=== PATIENT | female | born 1975 | race Two or more races ===

== ENCOUNTER 2025-01-02 13:54 | Outpatient (AMB) | payer MEDICAID, SELFPAY ==
[2025-01-02 14:22] VITALS: BP 135/92; PULSE 88; RESP 18; TEMP 36.8; O2SAT 99; BMI 36.3
--- NOTE | 2025-01-02 14:22 | PD.ORTHCLVIS ---
Vital signs 01/02/25 14:22 Height 1.65 m Height Method Stated Weight 98.997 kg Weight Measurement Method Standing Scale BMI 36.3 BP 135/92 H Blood Pressure Source Automatic Cuff Blood Pressure Location Left Upper Arm Position Sitting Respiration 18 Pulse 88 Pulse Source Monitor Temp 98.2 F Temp Source Temporal Artery Scan Pulse Oximetry (%) 99 Oxygen Delivery Method Room Air Med/Allergies Allergies & Medications Allergies Sulfa (Sulfonamide Antibiotics) Allergy (Intermediate, Verified 01/02/25 14:23) SOB codeine Adverse Reaction (Intermediate, Verified 01/02/25 14:23) SOB lorazepam Adverse Reaction (Intermediate, Verified 01/02/25 14:23) FLIPPED OUT hydrocodone Adverse Reaction (Mild, Verified 01/02/25 14:23) Rash Medication Reconciliation ondansetron 4 mg disintegrating tablet 4 mg PO Q8H #14 tabs 08/28/24 [Rx Confirmed 01/02/25] Exam Exam Breathing is nonlabored. Patient has a normal mood and affect. Bilateral extremities were evaluated and demonstrates sensation intact to light touch. Palpable pedal pulses are present. No significant edema is present. Bilateral hips were examined. The patient has no pain with log roll of the hips. Internal rotation to 30 degrees and external rotation to 30 degrees is painless. Negative FADIR. Left knee was examined today. The left knee is in reasonable alignment. Range of motion from 0-120 degrees. Knee is stable to varus and valgus as well as AP translation with <5mm. Patient has a negative McMurrays. There is no pain with patellofemoral compression and no crepitus noted. The knee is nontender to palpation. The right knee was also examined. The right knee is in varus alignment. Range of motion from 0-115 degrees. Knee is stable to varus and valgus as well as AP translation with <5mm. Patient has a negative McMurrays. There is no pain with patellofemoral compression and no crepitus noted. The knee is tender to palpation medially. Assessment and Plan Problem List (1) Bilateral knee pain: Status: Acute Plan: Patient is a 49-year-old female with bilateral knee pain and right knee arthritis. She is likely [id number] but we will need to get weightbearing x-rays to confirm this. I will see her back in approximately 2 weeks for a phone visit to discuss her x-ray results. She is exhausted conservative treatment at this point we will likely discuss surgery (2) Arthritis of right knee: Status: Acute Office Procedures GNS Level of Care Nursing/Assessment Patient Status: Initial/New Patient Nursing Assessment/Reassesment: Medication Reconciliation, Update PMH in EMR and Vital Signs Coordination of Care: Complex Care and Chronic Disease 1-5, Education Complex Pt/Fam, Consent,records obtained, informed consent, 1 Ins Authorization, Lab and Imaging orders, Results/Orders obtained and Staff clarify orders New Patient Charge New Patient Point Assignment: 1124 New Patient Point Charge: FIRE SAFETY DIRECTOR Level 4 ([id number]) MA Intake Visit Data Collection New Patient or Established: New Patient (never been to [facility]) Reason for Visit:: RIGHT KNEE PAIN Seen by Clinical Staff ONLY (RN/MA): No Tube Machine Operator Required: No PCP or OBGYN visit in last 3 months: Yes Hx Now: No Do You Feel Safe at Home: Yes Authorities Contacted: N/A Questionairres Past Medical History Past Medical History Have you ever been diagnosed with any of the following: Cardiology Problems Congestive Heart Failure: No Respiratory Problems Chronic Obstructive Pulmonary Disease (COPD): No Genital/Urinary Problems Renal Disease: No Endocrine Problems Diabetes Mellitus Type 1: No Diabetes Mellitus Type 2: No Subjective Visit Visit for: new patient and knee Immunization / Flu Flu Vaccine in the Last 12 Months: No Flu Vaccine Exclusion Criteria: Refused by Patient History of Present Illness Chief complaint: Bilateral knee pain Rosemary is a pleasant 49-year-old female with bilateral knee pain worse on the right. This is been ongoing for several years. She has had 3 injections. She is having difficulty taking anti-inflammatories due to some gastritis and peptic ulcer disease. The pain is affecting her quality life. She has tried Voltaren cream. The patient has also tried a brace. He is getting a kidney biopsy at [facility] send is being worked up for that As well as an endoscopy Personal History Occupation: NOT EMPLOYED Hobbies: DAILY ACTIVITES Pain Pain level (0-10): 10 Pain duration: COMES AND GOES Pain location: anterior and posterior Pain quality: sharp, dull and aching Pain timing: increases with activity Associated signs & symptoms: numbness Ambulatory data Ambulatory device: none Treatments Number of previous injections: 3 Improvement with previous injections: No Improvement with PT: No Improvement with NSAIDS: no Review of Systems Review of Systems: All systems negative unless otherwise noted in HPI.
== END 2025-01-02 15:10 | disposition home or self-care (01) ==
LOC: HODSRG 13:54
PROVIDERS: PCP Nurse Practitioner; Referring Provider Nurse Practitioner; Supervising Provider Orthopaedic Surgery Adult Reconstructive Orthopaedic Surgery; Visit Provider Orthopaedic Surgery Adult Reconstructive Orthopaedic Surgery
DX: M25.562 Pain in left knee (principal); M25.561 Pain in right knee; M17.11 Unilateral primary osteoarthritis, right knee; K29.70 Gastritis, unspecified, without bleeding; K27.9 Peptic ulcer, site unspecified, unspecified as acute or chronic, without hemorrhage or perforation
CPT/HCPCS: 99204; G0463

== ENCOUNTER 2025-01-26 11:09 | Outpatient (AMB) | payer MEDICAID, SELFPAY ==
--- NOTE | 2025-01-26 10:49 | ORTHONT_ITS ---
Med/Allergies Allergies & Medications Allergies Sulfa (Sulfonamide Antibiotics) Allergy (Intermediate, Verified 01/02/25 14:23) SOB codeine Adverse Reaction (Intermediate, Verified 01/02/25 14:23) SOB lorazepam Adverse Reaction (Intermediate, Verified 01/02/25 14:23) FLIPPED OUT hydrocodone Adverse Reaction (Mild, Verified 01/02/25 14:23) Rash Subjective Visit Visit for: follow up visit, knee (BILATERAL) and x-rays Immunization / Flu Flu Vaccine in the Last 12 Months: No Flu Vaccine Exclusion Criteria: No Exclusion Criteria History of Present Illness Chief complaint: Bilateral knee pain Patient is pleasant 49-year-old female with a right greater than left knee pain that has been ongoing for a a while. We discussed nonoperative options. She has tried cortisone injections in the past. She has peptic ulcer disease and is getting an endoscopy soon. We will see what the results of that is before we are prescribing the anti-inflammatories Pain Pain level (0-10): 8 Pain duration: ALL DAY Pain location: inside (medial), outside (lateral), anterior and posterior Pain quality: sharp, dull, aching and burning Pain timing: night, increases with activity and stairs Associated signs & symptoms: stiffness and other (specify) (SWELLING) Ambulatory data Ambulatory device: other (specify) (BRACE) Treatments Number of previous injections: 3 Improvement with previous injections: No Improvement with PT: No Improvement with NSAIDS: no Review of Systems Review of Systems: All systems negative unless otherwise noted in HPI. Assessment and Plan Problem List (1) Bilateral knee pain: Status: Acute Plan: Patient is a 49-year-old female with bilateral knee pain and right knee arthritis. X-rays demonstrate moderate arthritis of the right knee. I thus discussed that we will try conservative treatment. I am hesitant to give her an anti-inflammatory until we know the endoscopy results. We can try repeat cortisone injections as well. (2) Arthritis of right knee: Status: Acute Office Procedures GNS Level of Care Nursing/Assessment Patient Status: Established Patient Nursing Assessment/Reassesment: Medication Reconciliation, Update PMH in EMR and Vital Signs Coordination of Care: Complex Care and Chronic Disease 1-5, Education Complex Pt/Fam, Consent,records obtained, informed consent, Results/Orders obtained and Staff clarify orders Established Patient Charge Established Patient Point Assignment: 95 Telehealth Telemed Phone/Video with patient at home & Dr,PA,VORTEX OPERATOR: Yes
== END 2025-01-26 11:12 | disposition home or self-care (01) ==
LOC: HODSRG 11:09
PROVIDERS: PCP Nurse Practitioner; Referring Provider Nurse Practitioner; Supervising Provider Orthopaedic Surgery Adult Reconstructive Orthopaedic Surgery; Visit Provider Orthopaedic Surgery Adult Reconstructive Orthopaedic Surgery
DX: M17.11 Unilateral primary osteoarthritis, right knee (principal); M25.562 Pain in left knee
CPT/HCPCS: 99212; G0463